=== PATIENT | female | born 1990 | race Caucasian/White ===

== ENCOUNTER 2019-11-10 11:20 | Outpatient (CLI) | payer BC, SELFPAY ==
[2019-11-11] MEDS: RHO(D) IMMUNE GLOBULIN 300 MCG SYRINGE IM (10:54)
== END 2019-11-10 11:21 | disposition home or self-care (01) ==
LOC: ANHLAB 11:25
PROVIDERS: Visit Provider Obstetrics & Gynecology
DX: O36.0990 Maternal care for other rhesus isoimmunization, unspecified trimester, not applicable or unspecified (principal)
CPT/HCPCS: 36415; 85461; 90384; 96372; J2790

== ENCOUNTER 2020-01-18 16:12 | Observation (INO) | payer OTHER, SELFPAY ==
[2020-01-18 21:06] VITALS: BMI 25.8
--- NOTE | 2020-02-07 14:48 | PM.OBTRLD ---
OB - Triage/Final Diagnosis Final Diagnosis (1) False labor: Code(s): O47.9 - False labor, unspecified Status: Acute
== END 2020-01-18 21:05 | disposition home or self-care (01) ==
PROVIDERS: Admitting Provider Obstetrics & Gynecology; Visit Provider Obstetrics & Gynecology
DX: O47.03 False labor before 37 completed weeks of gestation, third trimester (principal); Z3A.38 38 weeks gestation of pregnancy
CPT/HCPCS: G0378; G0379

== ENCOUNTER 2020-01-23 05:05 | Inpatient (IN) | payer OTHER, SELFPAY ==
[2020-01-23] VITALS (125 sets, daily range): BP systolic 80–130; BP diastolic 33–86; PULSE 44–105; RESP 16; TEMP 36–37.1; O2SAT 99–100; BMI 25.8
--- NOTE | 2020-01-23 05:21 | LDADM ---
This patient, Crystal Friend, was admitted to Labor/Delivery/Recovery 104 on 01/23/20 at 05:05. Plans for labor, pain management and were discussed with patient. Patient/family oriented to hospital policies and general routines including ID bracelet, bed and alarms, visiting hours, pain management, procedures, bathroom and other care routines, personal items, smoking policy, room service/diet and guest tray routines, security routines, and visiting hours. Patient/Family are encouraged to report perceived risks to care and to ask questions if they do not understand what they are told or what they should do. See OBIX for further documentation.
[2020-01-23] MEDS: LACTATED RINGERS 1,000 ML 125 ML IV CONT ×3 (05:32→11:14)
[2020-01-23] MEDS: OXYTOCIN 30 UNITS/NS 500 ML 30 UNITS/500 ML BAG IV CONT (05:33)
[2020-01-23 05:50] LABS: Basophils Percent Auto 0.3 % (0.2-1.2); Eosinophils Percent Auto 0.3 % (0-4.4); Hematocrit 38.1 % (37.0-47.0); Immature Granulocyte Absolute 0.05 K/mm3 (0.00-0.031); Immature Granulocyte Percent A 0.7 % (0-0.5); Immature Platelet Fraction Pct 4.4 % (0.9-11.2); Lymphocytes Percent Auto 15.6 % (18.3-44.2); Mean Corpuscular HGB Conc 34.1 g/dl (32-36); Mean Corpuscular Hemoglobin 31.2 pg (26-34); Mean Corpuscular Volume 91.4 fl (80-100); Mean Platelet Volume 10.8 fl (7.4-10.4); Monocytes Absolute Auto 0.5 K/mm3 (0.1-0.6); Neutrophils Absolute Auto 5.9 K/mm3 (1.3-6.7); Neutrophils Percent Auto 77.1 % (45.5-73.1); Platelet Count Result 133 k/mm3 (150-375); Red Blood Count 4.17 M/mm3 (4.2-5.4); Red Cell Distribution Width 12.6 % (11.5-14.5); White Blood Count 7.7 K/mm3 (4.5-10.0)
--- NOTE | 2020-01-23 08:45 | WPDOBADMIT ---
Obstetrics - Admit Note Admission Note: record reviewed. Additions to the history and/or subsequent changes in the physical findings follow. 29 y/o at 39 3/7 weeks here for scheduled induction of labor. GBS neg. AVSS NST reactive TOCO: contractions every 2-3 min ABD soft, nontender, gravid, vertex EXT nontender Cervix 3/50/-2. AROM with clear fluid. Vertex. IUPC placed. A: IUP at term with favorable cervix. P: Oxytocin. Anticipate .
--- NOTE | 2020-01-23 12:57 | PM.OBPRVD ---
OB - Delivery Note Procedure Delivery date: 01/23/20 Procedure: Induction of labor with Induction method: AROM and per pitocin protocol Delivery monitor: external FHT, external uterine and internal uterine Route of delivery: Laceration Description: Perineal - 2nd Degree Delivery repair: vicryl (3-0) Specimen: Yes (cord blood) Quantitative Blood Loss (ml): 140 Anesthesia type: Epidural Disposition: PACU Complications: None Narrative: 29 y/o at 39 3/7 weeks gestation who presented to the hospital for induction of labor. Oxytocin was administered intravenously. Amniotomy was performed with return of clear fluid. She received an epidural for pain control. Her labor progressed and her cervix dilated completely. She pushed with good effort and delivered the 's head to the perineum, followed by the body. The nose and mouth were bulb suctioned. After a delay, the cord was clamped and cut. The infant was handed off the field. Cord blood was collected. The placenta delivered spontaneously and was grossly normal in appearance. The usual 3 vessel cord was noted. A second degree midline perineal laceration was sustained. This was reapproximated using 3 0 Vicryl in the usual layered fashion. Excellent hemostasis resulted as did excellent reapproximation of the normal anatomy. Needle and instrument counts were correct. The patient was taken to recovery room in stable condition. The went to the nursery in stable condition. I was present and scrubbed for the entire delivery. Baby Date of : 01/23/20 Time of : 12:33 Weeks of gestation at delivery: 39 gender: Male Weight (pounds): 7 Weight (ounces): 13 presentation: vertex position: Left Occiput Anterior Placenta delivery description: Spontaneous and Normal Configuration cord vessel description: 3 Vessels score one minute: 9 score five minutes: 9
--- NOTE | 2020-01-23 12:59 | PM.OBPRVD ---
OB - Delivery Note Procedure Anesthesia type: Epidural Baby Date of : 01/23/20 Time of : 12:33 Weeks of gestation at delivery: 39 Infant gender: Male Weight (pounds): 7 Weight (ounces): 13 presentation: vertex position: Left Occiput Anterior Placenta delivery description: Spontaneous and Normal Configuration score one minute: 9 score five minutes: 9
--- NOTE | 2020-01-23 13:00 | P.DS_ITS ---
DS: Admitting Diagnosis Admitting Diagnosis Admitting Diagnosis: IUP at 39 weeks DS: Discharge Diagnosis Discharge Diagnosis (1) (normal spontaneous vaginal delivery): Code(s): O80 - Encounter for full-term uncomplicated delivery Status: Acute OB - DS: Summary OB Procedures : None OB Procedures Intrapartum: Spontaneous Vag Delivery OB Procedures: : RHo (D) lg DS: Data Data Completed and Pending Labs on day of discharge: Labs from last 24 hours 01/23/20 01/23/20 01/23/20 05:28 05:28 05:28 WBC 7.7 RBC 4.17 L Hgb 13.0 Hct 38.1 MCV 91.4 MCH 31.2 MCHC 34.1 RDW 12.6 Plt Count 133 L MPV 10.8 H Immature Gran % (Auto) 0.7 H Neut % (Auto) 77.1 H Lymph % (Auto) 15.6 L [place] % (Auto) 6.0 Eos % (Auto) 0.3 Baso % (Auto) 0.3 Lymph # (Auto) 1.20 [place] # (Auto) 0.5 Eos # (Auto) 0.0 Baso # (Auto) 0.0 Abs Immat Gran (auto) 0.05 H Absolute Neuts (auto) 5.9 Absolute Nucleated RBC 0.0 Nucleated RBC % 0.0 % Immature Plt Fraction 4.4 RPR Pending Blood Type A Negative Antibody Screen Positive Antibody Identification Inconclusive Antigen Identification TNP JOSE, IgG Interpret Not Performed JOSE, Poly Interpret Negative JOSE, Complement Interp Not Performed Discharge Plan Discharge Attending physician on discharge: Samy Oh Discharging Clinician: Samy Oh Patient Disposition: Home, Self-Care Activity: pelvic rest Diet: regular Discharge Instructions: Call or return if temperature above 100.4? F, increased abdominal pain, increased vaginal bleeding or any new problems. Stand Alone Forms: General Discharge Information Follow-up/Referrals: Samy Oh MD [Physician] - 6 Weeks Discharge Medications: New ibuprofen 600 mg tablet 600 mg PO Q6H PRN (Reason: cramps) Qty: 30 RF: 0 docusate sodium [Colace] 100 mg capsule 100 mg PO BID PRN (Reason: constipation) Qty: 60 RF: 0 No Action PNV cmb#95-ferrous fumarate-FA [] 28 mg iron- 800 mcg Tablet 1 tablet PO DAILY RF: 0 valacyclovir [Valtrex] 500 mg Tablet 500 mg PO BID RF: 0 Date of admission: 01/23/20 05:05 Primary Care Provider: PHYSICIAN,EQUITY STRUCTURER Admitting Provider: Samy Oh Attending physician on admission: Samy Oh Condition: Stable
[2020-01-23] MEDS: OXYTOCIN 30 UNITS/NS 500 ML 30 UNITS/500 ML BAG 125 UNITS IV CONT (13:10)
[2020-01-23] MEDS: WITCH HAZEL 40 PADS 1 PAD TOPICAL (15:00)
[2020-01-23] MEDS: BENZOCAINE 20% AER SPR (*SP) 56 GM CAN 1 SPRAY TOPICAL (15:00)
[2020-01-23] MEDS: IBUPROFEN 600 MG TABLET PO (18:10)
[2020-01-23] MEDS: ACETAMINOPHEN 325 MG TABLET 650 MG PO (20:22)
[2020-01-24] MEDS: IBUPROFEN 600 MG TABLET PO ×2 (00:17→09:01)
[2020-01-24] MEDS: ACETAMINOPHEN 325 MG TABLET 650 MG PO ×2 (05:06→12:31)
[2020-01-24 05:34] LABS: Hematocrit 33.7 % (37.0-47.0); Hemoglobin 11.6 g/dL (12.0-15.0)
[2020-01-24 07:36] LABS: Rapid Plasma Reagin Non-Reactive (NonReactive)
[2020-01-24 07:40] VITALS: BP 116/75; PULSE 71; RESP 18; TEMP 36.8
[2020-01-24] MEDS: MULTIVIT/MIN/PREN/FOL AC/IRON TABLET 1 TAB PO (09:01)
[2020-01-24] MEDS: POLYSACCHARIDE IRON COMPLEX 150 MG CAPSULE PO (09:01)
[2020-01-24] MEDS: DOCUSATE SODIUM 100 MG CAPSULE PO (09:01)
[2020-01-24] MEDS: RHO(D) IMMUNE GLOBULIN 300 MCG SYRINGE IM (12:15)
--- NOTE | 2020-01-24 12:44 | PM.OBPNVD ---
OB - PN: Subj Subjective Date/time seen: 01/24/20 12:44 Narrative: Pain OK. Would like to go home. Would like circumcision for son. Got Rhogam. OB - PN: Obj Data Labs CBC & Chem 7: 01/24/20 05:17 Labs: Laboratory Results - last 24 hr 01/23/20 01/24/20 01/24/20 05:28 05:17 05:17 Hgb 11.6 L Hct 33.7 L RPR Non-reactive Blood Type A Negative Antibody Screen TNP Screen Negative Baby's Blood Type A pos Baby's JOSE Positive Doses of RhIg Required 1 OB - PN A/P Plan Comments: A: PPD#1, doing well. P: Home to f/u 6 weeks. Reviewed circumcision. Exam Psych: Other: AVSS ABD soft, nontender, fundus firm EXT nontender
--- NOTE | 2020-01-24 13:56 | WPDANLDPN2 ---
Anes-Prog Note L&D Date/Time: 01/24/20 13:56 Comfortable throughout: labor and delivery Neuraxial method: epidural Epidural/Spinal procedure site: clean & non-tender Neuro status: Neuro function grossly intact. Cardiovascular status: normal Respiratory status: normal Airway patency: baseline Mental status: baseline Post-Op hydration status: normal Vital Signs: Last Vital Signs Temp 36.8 C 01/24/20 07:40 Pulse 71 01/24/20 07:40 Resp 18 01/24/20 07:40 BP 116/75 01/24/20 07:40 Pulse Ox 100 01/23/20 20:15 Pain score (VAS): 0/10. Patient up at bedside during assessment, appears comfortable. Support person at bedside. I/O: Intake & Output 01/23/20 01/24/20 01/24/20 23:59 07:59 15:59 Intake Total 500 Balance 500 Post-procedural complaints: none Patient feedback: Patient satisfied with anesthetic care.
[2020-01-26 10:41] VITALS: BP 129/75; PULSE 79; RESP 20; TEMP 37; O2SAT 100
== END 2020-01-24 15:45 | disposition home or self-care (01) | DRG 807 ==
LOC: ANHLDR 13:01 → ANHOB2 16:01
PROVIDERS: Admitting Provider Obstetrics & Gynecology; Visit Provider Obstetrics & Gynecology
DX: O70.1 Second degree perineal laceration during delivery (principal); Z37.0 Single live birth; Z3A.39 39 weeks gestation of pregnancy
CPT/HCPCS: 36415; 85014; 85018; 85025; 85055; 85461; 86592; 86850; 86880; 86900; 86901; 86902; 90384; A9270; J2590; J2790; J2795; J7120

== ENCOUNTER 2022-08-06 08:40 | Outpatient (CLI) | payer OTHER, SELFPAY ==
[2022-08-07] MEDS: RHO(D) IMMUNE GLOBULIN 300 MCG/2 ML SYRINGE IM (14:52)
== END 2022-08-06 08:41 | disposition home or self-care (01) ==
PROVIDERS: Visit Provider Obstetrics & Gynecology
DX: Z29.13 Encounter for prophylactic Rho(D) immune globulin (principal)
CPT/HCPCS: 36415; 85461; 86850; 86900; 86901; 90384; 96372; J2790

== ENCOUNTER 2022-10-07 16:04 | Inpatient (IN) | payer OTHER, SELFPAY ==
[2022-10-07] VITALS (85 sets, daily range): BP systolic 99–143; BP diastolic 59–94; PULSE 57–91; RESP 16; TEMP 36.1–36.6; O2SAT 90–100; BMI 25.8
--- NOTE | 2022-10-07 16:34 | LDADM ---
This patient, Crystal Friend, was admitted to Labor/Delivery/Recovery 104 on 10/07/22 at 16:04. Plans for labor, pain management and were discussed with patient. Patient/family oriented to hospital policies and general routines including ID bracelet, bed and alarms, visiting hours, pain management, procedures, bathroom and other care routines, personal items, smoking policy, room service/diet and guest tray routines, security routines, and visiting hours. Patient/Family are encouraged to report perceived risks to care and to ask questions if they do not understand what they are told or what they should do. See OBIX for further documentation.
[2022-10-07 16:50] LABS: Basophils Percent Auto 0.2 % (0.2-1.2); Eosinophils Percent Auto 0.1 % (0-4.4); Hematocrit 39.8 % (37.0-47.0); Hemoglobin 13.6 g/dL (12.0-15.0); Immature Granulocyte Absolute 0.03 K/mm3 (0.00-0.031); Immature Granulocyte Percent A 0.4 % (0-0.5); Lymphocytes Absolute Auto 1.25 K/mm3 (0.9-3.2); Lymphocytes Percent Auto 14.9 % (18.3-44.2); Mean Corpuscular HGB Conc 34.2 g/dl (32-36); Mean Corpuscular Hemoglobin 31.8 pg (26-34); Mean Platelet Volume 11.1 fl (7.4-10.4); Monocytes Absolute Auto 0.6 K/mm3 (0.1-0.6); Monocytes Percent Auto 6.5 % (2.6-8.5); Neutrophils Absolute Auto 6.6 K/mm3 (1.3-6.7); Neutrophils Percent Auto 77.9 % (45.5-73.1); Platelet Count Result 143 k/mm3 (150-375); Red Blood Count 4.28 M/mm3 (4.2-5.4); Red Cell Distribution Width 13.1 % (11.5-14.5); White Blood Count 8.4 K/mm3 (4.5-10.0)
[2022-10-07] MEDS: LACTATED RINGERS 1,000 ML 125 ML IV CONT ×2 (17:22→18:26)
[2022-10-07] MEDS: OXYTOCIN 30 UNITS/NS 500 ML 30 UNITS/500 ML BAG IV CONT (17:23)
--- NOTE | 2022-10-07 18:28 | WPDANESEPP ---
Anes - Eval Pre Procedure Procedure: Labor epidural Date/Time: 10/07/22 18:28 Surgeon: Adriano Preop Diagnosis: Abdominal pain with contractions Pre Op Diagnosis: IOL Patient Data Age: 32 Gender: F Height: 1.57 m Weight: 64 kg Last Vital Signs Temp 97.9 F 10/07/22 16:54 Pulse 73 10/07/22 17:46 BP 120/72 10/07/22 17:46 O2 Del Method Room Air 10/07/22 16:33 Allergies Allergy/AdvReac Type Severity Reaction Status Date / Time No Known Allergies Allergy Verified 12/29/19 14:37 Home Medications Medication Instructions Recorded Confirmed Type vit no.95-ferrous 1 tablet PO DAILY 12/29/19 10/07/22 History fumarate 28 mg-folic acid 800 mcg tablet () valacyclovir 500 mg tablet 500 mg PO DAILY 09/14/22 09/14/22 History (Valtrex) Laboratory Tests 10/07/22 10/07/22 10/07/22 16:43 16:44 17:32 WBC 8.4 K/mm3 (4.5-10.0) RBC 4.28 M/mm3 (4.2-5.4) Hgb 13.6 g/dL (12.0-15.0) Hct 39.8 % (37.0-47.0) MCV 93.0 fl (80-100) MCH 31.8 pg (26-34) MCHC 34.2 g/dl (32-36) RDW 13.1 % (11.5-14.5) Plt Count 143 L k/mm3 (150-375) MPV 11.1 H fl (7.4-10.4) Immature Gran % (Auto) 0.4 % (0-0.5) Neut % (Auto) 77.9 H % (45.5-73.1) Lymph % (Auto) 14.9 L % (18.3-44.2) [place] % (Auto) 6.5 % (2.6-8.5) Eos % (Auto) 0.1 % (0-4.4) Baso % (Auto) 0.2 % (0.2-1.2) Lymph # (Auto) 1.25 K/mm3 (0.9-3.2) [place] # (Auto) 0.6 K/mm3 (0.1-0.6) Eos # (Auto) 0.0 K/mm3 (0-0.3) Baso # (Auto) 0.0 K/mm3 (0.0-0.1) Abs Immat Gran (auto) 0.03 K/mm3 (0.00-0.031) Absolute Neuts (auto) 6.6 K/mm3 (1.3-6.7) Absolute Nucleated RBC 0.0 K/mm3 (0.0-0.012) Nucleated RBC % 0.0 % (0.0-0.2) RPR Pending HIV 1&2 Ab/P24 Ag 4thGn Pending Blood Type A Negative Antibody Screen Positive Antibody Identification Pending Antigen Identification Pending JOSE, IgG Interpret Pending JOSE, Poly Interpret Pending JOSE, Complement Interp Pending : gestational age HCG: positive Patient hx anesthesia problems: none Family hx anesthesia problems: none Results Review: All pre-operative results and documents have been reviewed as part of the pre-operative evaluation. [facility] Past Medical History Medical History and not yet delivered Family History Family History Other No pertinent family history Social History Social History Smoking status: Never smoker Substance use: never Lack of Transportation: No Lack of Food: Never True Current Housing: I Have Housing Concerned About Future Housing: No Difficulty Paying Gas/Electric Bills: No Difficulty Paying for Meds: No Currently Unemployed: No Education: Don't Know Difficulty w/ Childcare or Family Care: No Gender identity (if verbalized by the patient): Female Spiritual care concerns: No Exam Day of Procedure 10/07/22 18:28 Patient weight: normal Airway: Mallampati scale class II
[2022-10-07 18:33] LABS: HIV 1/2 Ab P24 Ag Result Negative (Negative)
[2022-10-08] VITALS (69 sets, daily range): BP systolic 106–136; BP diastolic 41–93; PULSE 53–93; RESP 16–18; TEMP 36.2–36.8; O2SAT 98–100
[2022-10-08] MEDS: LACTATED RINGERS 1,000 ML 125 ML IV CONT (02:28)
--- NOTE | 2022-10-08 04:46 | WPDOBADMIT ---
Obstetrics - Admit Note Admission Note: record reviewed. Additions to the history and/or subsequent changes in the physical findings follow. 32 y/o at 39 2/7 weeks here for induction of labor. GBS neg. Now comfortable with epidural. AVSS NST reactive TOCO: contractions every 2-3 min ABD soft, nontender, gravid, vertex EXT nontender Cervix C/+2 A: IUP at term here desiring induction of labor. P: Anticipate .
--- NOTE | 2022-10-08 04:48 | PM.OBPRVD ---
OB - Delivery Note Procedure Delivery date: 10/08/22 Procedure: Induction of labor with Induction method: Per Pitocin Protocol Delivery monitor: External FHT and External Uterine Route of delivery: Laceration Description: Perineal - 2nd Degree Delivery repair: vicryl (3-0) Specimen: Yes (cord blood) Quantitative Blood Loss (ml): 220 Anesthesia type: Epidural Disposition: PACU Complications: None Narrative: 32 y/ at 39 2/7 weeks gestation who presented to the hospital for induction of labor. Oxytocin was administered intravenously. She received an epidural for pain control. Her labor progressed and her cervix dilated completely. She pushed with good effort and delivered the 's head to the perineum, followed by the body. The nose and mouth were bulb suctioned. After a delay, the cord was clamped and cut. The infant was handed off the field. Cord blood was collected. The placenta delivered spontaneously and was grossly normal in appearance. The usual 3 vessel cord was noted. A second degree midline perineal laceration was sustained. This was reapproximated using 3 0 Vicryl in the usual layered fashion. Excellent hemostasis resulted as did excellent reapproximation of the normal anatomy. Needle and instrument counts were correct. The patient was taken to recovery room in stable condition. The infant went to the nursery in stable condition. I was present and scrubbed for the entire delivery. Baby Date of : 10/08/22 Time of : 04:26 Weeks of gestation at delivery: 39 Infant gender: Male Weight (pounds): 6 Weight (ounces): 8 presentation: vertex position: Left Occiput Anterior Placenta delivery description: Spontaneous Cord Vessel Description: 3 Vessels and Delayed Cord Clamping score one minute: 9 score five minutes: 9
--- NOTE | 2022-10-08 04:49 | PM.OBDSVD ---
DS: Admitting Diagnosis Discharge Date 10/09/22 Admitting Diagnosis IUP at 39 2/7 weeks DS: Discharge Diagnosis Discharge Diagnosis (1) (normal spontaneous vaginal delivery): Code(s): O80 - Encounter for full-term uncomplicated delivery Status: Acute OB - DS: Summary OB Procedures : None OB Procedures Intrapartum: Spontaneous Vag Delivery OB Procedures: : RHo (D) lg Time Spent with Patient Time attestation: Total time spent providing and/or coordinating discharge services: DS: Data Data Completed and Pending Labs on day of discharge: Labs from last 24 hours 10/07/22 10/07/22 10/07/22 17:32 16:44 16:43 WBC 8.4 RBC 4.28 Hgb 13.6 Hct 39.8 MCV 93.0 MCH 31.8 MCHC 34.2 RDW 13.1 Plt Count 143 L MPV 11.1 H Immature Gran % (Auto) 0.4 Neut % (Auto) 77.9 H Lymph % (Auto) 14.9 L [place] % (Auto) 6.5 Eos % (Auto) 0.1 Baso % (Auto) 0.2 Lymph # (Auto) 1.25 [place] # (Auto) 0.6 Eos # (Auto) 0.0 Baso # (Auto) 0.0 Abs Immat Gran (auto) 0.03 Absolute Neuts (auto) 6.6 Absolute Nucleated RBC 0.0 Nucleated RBC % 0.0 RPR Pending HIV 1&2 Ab/P24 Ag 4thGn Negative Blood Type A Negative Antibody Screen Positive Antibody Identification Passive Due to RH Imm Glob Antigen Identification TNP JOSE, IgG Interpret Not Performed JOSE, Poly Interpret Negative JOSE, Complement Interp Not Performed Discharge Plan Discharge Attending physician on discharge: Samy Oh Discharging Clinician: Samy Oh Patient Disposition: Home, Self-Care Activity: pelvic rest Diet: regular Discharge Instructions: Call or return if temperature above 100.4? F, increased abdominal pain, increased vaginal bleeding or any new problems. Stand Alone Forms: General Discharge Information Follow-up/Referrals: Samy Oh MD [Physician] - 6 Weeks Discharge Medications: New ibuprofen 600 mg tablet 600 mg PO Q6H PRN (Reason: cramps) Qty: 30 0RF Colace Clear 50 mg capsule 100 mg PO BID Qty: 60 0RF Continued PNV cmb#95-ferrous fumarate-FA [] 28 mg iron- 800 mcg Tablet 1 tablet PO DAILY valacyclovir [Valtrex] 500 mg Tablet 500 mg PO DAILY Date of admission: 10/07/22 16:04 Primary Care Provider: PHYSICIAN,CONCRETE PRODUCTS MACHINE OPERATOR Admitting Provider: Samy Oh Attending physician on admission: Samy Oh Condition: Stable
[2022-10-08] MEDS: OXYTOCIN 30 UNITS/NS 500 ML 30 UNITS/500 ML BAG 125 UNITS IV CONT (04:58)
--- NOTE | 2022-10-08 07:23 | OBPPTRN ---
Patient transferred to post room #278 via wheelchair. Support person present. Oriented to unit, room, information board, rooming in, admission packet and security measures. Patient verbalizes understanding.
[2022-10-08] MEDS: MULTIVIT/MIN/PREN/FOL AC/IRON TABLET 1 TAB PO (08:25)
[2022-10-08] MEDS: DOCUSATE SODIUM 100 MG CAPSULE PO ×2 (08:25→16:34)
[2022-10-08] MEDS: IBUPROFEN 600 MG TABLET PO ×3 (08:25→23:43)
[2022-10-08] MEDS: ACETAMINOPHEN 325 MG TABLET 650 MG PO ×2 (12:13→19:07)
--- NOTE | 2022-10-08 13:35 | PC.NURSE ---
1130 Introductions were made, then consulted with patient to assess needs related to . Mother led the conversation with her?plans to feed?her and the?experience so far. Mother works well with her infant with encouragement and education. Encouraged understanding of the benefits of skin to skin (demonstrating unwrapping and placing upright on her chest), stimulating with massage touch, changing positions to encourage wakefulness, how to watch for early feeding cues, responsive feeding, feeding on demand (aiming for 8-12 times in 24 hours, about every 2-3 hours), milk production, building/maintaining a milk supply, duration of feeding, signs of adequate intake/output and how to record on the feeding sheet. Reviewed positioning and ear, shoulder, hip alignment, supporting the breast to facilitate a deep latch, asymmetrical latch (off-center), leading with the chin with a big, open, wide gape and body close to mother. was fed at 1030. Mother denies difficulties with latch and has no resulting discomfort. Education given to mother of how to visualize suck/swallow ratios and listen for drinking at the breast. Nipple care reviewed with optimal latch and good positioning. Reminding mother of comfort measures of healing with a warm and wet washcloth to rinse breast, then leave open to air-dry as needed. Reviewed good handwashing when or touching the breast/nipples to prevent infection. Resources used to facilitate learning were used with the mom and baby guide. Mother voiced understanding of skin to skin, stimulating with massage touch, responsive feedings, hand expressed colostrum, talking to to encourage if it has been 2 -2.5 hours since the start of the last , to call if infant does not latch, or if there is discomfort with . Mother voiced understanding of information, demonstrated learning and will call if there is a request for assistance. Reported to primary RN.
[2022-10-08 17:04] LABS: Rapid Plasma Reagin Non-Reactive (NonReactive)
[2022-10-09] MEDS: ACETAMINOPHEN 325 MG TABLET 650 MG PO ×2 (04:13→11:06)
[2022-10-09 04:41] LABS: Hematocrit 30.7 % (37.0-47.0); Hemoglobin 10.2 g/dL (12.0-15.0)
[2022-10-09 07:45] VITALS: BP 116/56; PULSE 67; RESP 16; TEMP 37.6; O2SAT 100
[2022-10-09] MEDS: MULTIVIT/MIN/PREN/FOL AC/IRON TABLET 1 TAB PO (08:29)
[2022-10-09] MEDS: DOCUSATE SODIUM 100 MG CAPSULE PO (08:29)
[2022-10-09] MEDS: IBUPROFEN 600 MG TABLET PO (08:29)
--- NOTE | 2022-10-09 12:20 | WPDANLDPN2 ---
Anes-Prog Note L&D Date/Time: 10/09/22 12:20 Neuro status: Neuro function grossly intact. Cardiovascular status: normal Respiratory status: normal Airway patency: baseline Mental status: baseline Post-Op hydration status: normal Vital Signs: Last Vital Signs Temp 37.6 C 10/09/22 07:45 Pulse 67 10/09/22 07:45 Resp 16 10/09/22 07:45 BP 116/56 L 10/09/22 07:45 Pulse Ox 100 10/09/22 07:45 O2 Del Method Room Air 10/09/22 08:30 Pain score (VAS): 0 Post-procedural complaints: none Patient feedback: Patient satisfied with anesthetic care.
--- NOTE | 2022-10-09 12:23 | PM.OBPNVD ---
OB - PN: Subj Subjective Date/time seen: 10/09/22 12:23 Narrative: Pain OK. Would like circumcision for son. Also would like to go home. OB - PN: Obj Data Labs 10/09/22 04:19 Labs: Laboratory Results - last 24 hr 10/07/22 10/09/22 16:44 04:19 Hgb 10.2 L D Hct 30.7 L RPR Non-reactive OB - PN A/P Plan day: 1 Comments: A: PPD#1, doing well. P: Reviewed circ. Home to f/u 6 weeks. Exam Psych: Other: AVSS ABD soft, nontender, fundus firm EXT nontender
--- NOTE | 2022-10-09 13:26 | PC.NURSE ---
[id number] Introductions were made, then consulted with patient to assess needs related to . Mother led the conversation with her?plans to feed?her infant and the?experience so far. Mother works well with her with encouragement and education. Encouraged understanding of the benefits of skin to skin (demonstrating unwrapping and placing upright on her chest), stimulating with massage touch, changing positions to encourage wakefulness, how to watch for early feeding cues, responsive feeding, feeding on demand (aiming for 8-12 times in 24 hours, about every 2-3 hours), milk production, building/maintaining a milk supply, duration of feeding, signs of adequate intake/output and how to record on the feeding sheet. Reviewed positioning and ear, shoulder, hip alignment, supporting the breast to facilitate a deep latch, asymmetrical latch (off-center), leading with the chin with a big, open, wide gape and body close to mother. Infant latched optimally to the left breast in football position. Education given to mother of how to visualize suck/swallow ratios and listen for drinking at the breast. Infant was able to maintain latch without discomfort to mother. Nipple care reviewed with optimal latch and good positioning. Mother led the conversation with her experience and plan to feed her infant so far and her ability to independently latch infant optimally without discomfort. Reminded parents to use good handwashing technique to prevent infection. Mother is feeding appropriately for growth of infant and understands stimulating infant to eat if needed. has had appropriate feedings in the last 24 hours meets the outcomes for weight, output and jaundice at this time. Mother states she is confident to continue effectively her at home, when to call for assistance and denies any additional assistance or education at this time. Reinforced understanding of milk production, transition of milk, signs of adequate intake, transition of stool, prevention/relief of engorgement, plugged ducts, mastitis, responsive watching for feeding cues, the different methods of stimulating infant to breastfeed 2-3 hours after the start of the last feeding, community resources and when to call a provider using the resource of the mom and baby guide. Parents voiced understanding of the education shared. Reported to the primary RN.
--- NOTE | 2022-10-09 15:10 | PC.NURSE ---
[id number] Consulted with patient per request of patient. Mother led conversation with her experience with feeding baby so far. Mother works well with her with encouragement. Reviewed working with , supporting breast and how to protect the nipples with an optimal deep latch, good positioning, and good hand washing. Encouraged understanding the benefits of skin to skin, responding to feeding cues, frequencies of feeding 8-12 times in 24 hours (approximately 2-3 hours), duration of feedings, milk production, intake/output feeding sheet and signs of adequate intake encouraging swallowing at the breast. Reviewed positioning and alignment, supporting breast with the sandwich hold, off-centered (asymmetrical latch) and leading with the chin with big, open, wide gape. Infant latched optimally to the right breast in football position. was able to maintain latch without discomfort to mother. Nipple care reviewed with optimal latch, good positioning and using clean hands when feeding her infant and touching her breast. Mother voiced understanding of the education shared. Reported to the primary RN.
[2022-10-10 08:20] VITALS: BP 111/67; PULSE 78; RESP 18; TEMP 37.2; O2SAT 100
== END 2022-10-09 15:55 | disposition home or self-care (01) | DRG 807 ==
LOC: ANHLDR 10-08 04:50 → ANHOB2 10-08 07:29
PROVIDERS: Admitting Provider Obstetrics & Gynecology; Visit Provider Obstetrics & Gynecology
DX: O98.32 Other infections with a predominantly sexual mode of transmission complicating childbirth (principal); Z37.0 Single live birth; Z3A.39 39 weeks gestation of pregnancy; A60.09 Herpesviral infection of other urogenital tract; O70.1 Second degree perineal laceration during delivery
CPT/HCPCS: 36415; 85014; 85018; 85025; 86592; 86703; 86850; 86880; 86900; 86901; A9270; G0432; J2590; J2795; J7120

== ENCOUNTER 2023-07-18 10:03 | Emergency (ER) | payer OTHER, SELFPAY ==
[2023-07-18] VITALS (18 sets, daily range): BP systolic 120–140; BP diastolic 73–91; PULSE 61–87; RESP 12–22; TEMP 36.6; O2SAT 99–100
--- NOTE | ~2023-07-18 | CT_ITS ---
EXAMINATION: CT abdomen pelvis w con DATE: 07/18/2023 12:10 INDICATION: Left lower quadrant pain TECHNIQUE: Computed tomography (CT) of the abdomen and pelvis was performed with 100 cc Omnipaque 350 intravenous contrast. The dose-length product was 207.73 mGy-cm. Automated exposure control and iterative reconstruction technique were employed. COMPARISON: None. FINDINGS: Lung bases are unremarkable. Heart size normal. No significant pleural or pericardial effus ion. The liver, spleen, pancreas, adrenal glands and kidneys are unremarkable. Gallbladder is present . IUD present in the pelvis. No significant vascular abnormality. No lymphadenopathy. Mild thickening of the descending and sigmoid colon, suspicious for colitis. No free air or free fluid. No abscess. No acute osseous abnormality. IMPRESSION: 1. Mild thickening of the left colon, suspicious for colitis. Reviewed, dictated and finalized at location B.
[2023-07-18 10:39] LABS: Basophils Percent Auto 0.2 % (0.2-1.2); Eosinophils Percent Auto 0.2 % (0-4.4); Hematocrit 43.3 % (37.0-47.0); Hemoglobin 14.4 g/dL (12.0-15.0); Immature Granulocyte Absolute 0.01 K/mm3 (0.00-0.031); Immature Granulocyte Percent A 0.2 % (0-0.5); Lymphocytes Absolute Auto 1.59 K/mm3 (0.9-3.2); Lymphocytes Percent Auto 32.9 % (18.3-44.2); Mean Corpuscular HGB Conc 33.3 g/dl (32-36); Mean Corpuscular Hemoglobin 29.7 pg (26-34); Mean Corpuscular Volume 89.3 fl (80-100); Mean Platelet Volume 9.4 fl (7.4-10.4); Monocytes Absolute Auto 0.4 K/mm3 (0.1-0.6); Monocytes Percent Auto 8.9 % (2.6-8.5); Neutrophils Absolute Auto 2.8 K/mm3 (1.3-6.7); Neutrophils Percent Auto 57.6 % (45.5-73.1); Platelet Count Result 165 k/mm3 (150-375); Red Blood Count 4.85 M/mm3 (4.2-5.4); White Blood Count 4.8 K/mm3 (4.5-10.0)
[2023-07-18 10:41] LABS: Appearance Urine Clear (Clear); Bilirubin Urine Negative (Negative); Blood Urine Negative (Negative); Color Urine Yellow (Yellow); Glucose Urine UA Negative (Negative); Ketones Urine Negative (Negative); Leukocyte Esterase Ur Negative LEU/UL (Negative); Nitrate Urine Negative (Negative); Protein Urine Negative (Negative); Urobilinogen Urine 0.2 mg/dL (<2.0)
[2023-07-18 10:49] LABS: Alanine Aminotransferase 15 U/L (6-35); Alkaline Phosphatase 71 U/L (38-126); Anion Gap 7 mmol/L (4-12); Aspartate Amino Transferase 21 U/L (14-36); Bilirubin,Total 0.5 mg/dL (0.2-1.3); Blood Urea Nitrogen 12 mg/dL (7-17); Calcium 9.8 mg/dL (8.4-10.2); Carbon Dioxide 29 mmol/L (22-30); Chloride 106 mmol/L (98-107); Estimated CRCL calculation 74 ml/min; Estimated Glomerular Filt Rate > 60; Glucose 128 mg/dL (65-110); Lipase 177 U/L (23-300); Potassium 3.7 mmol/L (3.4-5.0); Sodium 142 mmol/L (137-145)
[2023-07-18 10:56] LABS: Specific Grav Ur 1.003 (1.001-1.035)
[2023-07-18 10:57] LABS: Add Urine Microscopic? NO
--- NOTE | 2023-07-18 11:07 | ED.GENADULT ---
HPI - General Adult General Chief complaint: Abdominal Pain Stated complaint: abd pain Time Seen by Provider: 07/18/23 10:44 History of Present Illness HPI narrative: This is a 33-year-old female presenting ED with 5 days abdominal discomfort. Patient has been having pain in the left lower quadrant. It is an achy pain radiates to her back. It comes and goes. She has never had pain like this before. It is typically worse at night and she feels some improvement when she curls into a ball. It is associated with some nausea but no vomiting or diarrhea. Her last bowel was at 9:00 a.m. and was normal. Her family did have a stomach bug earlier in the week although she did not develop any symptoms outside some body aches. Patient is denying fever chills nausea vomiting chest pain breathing or urinary symptoms. No vaginal discharge irritation. Patient is on a Mirena IUD and has not had a period since before she delivered her last child. She currently is a 9-month-old child. Related Data Home Medications Medication Instructions Recorded Confirmed vit no.95-ferrous 1 tablet PO DAILY 12/29/19 10/07/22 fumarate 28 mg-folic acid 800 mcg tablet () valacyclovir 500 mg tablet 500 mg PO DAILY 09/14/22 09/14/22 (Valtrex) Allergies Allergy/AdvReac Type Severity Reaction Status Date / Time No Known Allergies Allergy Verified 12/29/19 14:37 [facility] Past Medical History Medical History and not yet delivered Family History Family History Other No pertinent family history Social History Social History Smoking status: Never smoker Substance use: never Lack of Transportation: No Lack of Food: Never True Current Housing: I Have Housing Concerned About Future Housing: No Difficulty Paying Gas/Electric Bills: No Difficulty Paying for Meds: No Currently Unemployed: No Education: Don't Know Difficulty w/ Childcare or Family Care: No Gender identity (if verbalized by the patient): Female Spiritual care concerns: No Exam Narrative: APPEARANCE: No apparent distress. Head: atraumatic. EYES: EOMI, NOSE: Atraumatic NECK: Trachea midline RESPIRATORY: No increased rate of breathing CARDIOVASCULAR: RRR, ABDOMINAL: abdomen is soft not with no guarding or rebound. Patient notes tenderness in left lower quadrant although I am unable to elicit a grimace. MUSCULOSKELETAl: No obvious deformities NEURO: Alert. Moving 4/4 extremities SKIN:: Warm, dry. Normal color PSYCHIATRIC: Normal affect Course Vital Signs Vital signs: Vital Signs Temperature 97.8 F 07/18/23 10:15 Pulse Rate 83 07/18/23 10:15 Respiratory Rate 16 07/18/23 10:15 Blood Pressure 133/91 H 07/18/23 10:15 Pulse Oximetry 100 07/18/23 10:15 Oxygen Delivery Room Air 07/18/23 10:15 Temperature 97.8 F 07/18/23 10:15 Pulse Rate 87 07/18/23 12:31 Respiratory Rate 20 07/18/23 12:31 Blood Pressure 125/80 07/18/23 11:46 Pulse Oximetry 100 07/18/23 12:31 Oxygen Delivery Room Air 07/18/23 10:15 Medical Decision Making [facility] Narrative Medical decision making narrative: -Course: 33-year-old female presenting 5 days left lower quadrant pain. CT abdomen pelvis showed mild colitis. Patient is afebrile with normal vital signs, normal white count and is not having diarrhea. Likely viral from her family's stomach bug. Patient discharged With Motrin Tylenol. given return precautions and primary care follow-up -DDX includes but is not limited to: colitis, gastroenteritis, ovarian cyst, ovarian torsion UTI -Independent interpretation of studies: labs reviewed within normal limits. Urine not indicative infection. CT abdomen pelvis showed colitis. -Shared decision making / Disposition: disc
[2023-07-18 11:42] LABS: Pregnancy On Board Control Positive; Urine Pregnancy Test Negative
== END 2023-07-18 13:44 | disposition home or self-care (01) ==
PROVIDERS: Emergency Medicine; Emergency Provider Emergency Medicine
DX: K52.9 Noninfective gastroenteritis and colitis, unspecified (principal)
CPT/HCPCS: 36415; 74177; 80053; 81003; 81025; 83690; 85025; 99284; Q9967